=== PATIENT | male | born 1940 | race Caucasian/White ===

== ENCOUNTER 2025-09-03 08:36 | Emergency (ER) | payer MEDICARE, SELFPAY ==
[2025-09-03] VITALS (13 sets, daily range): BP systolic 88–162; BP diastolic 52–88; BMI 33.4
--- NOTE | 2025-09-03 09:11 | ED.GENMED ---
History of Present Illness
General
Chief Complaint: Heart Rate Problem
Source: patient
Exam Limitations: none
Time Seen by Provider: 09/03/25 08:59
Nursing documentation reviewed up to this point in time: agreed with
History of Present Illness
History of Present Illness:
85-year-old male with past medical history of hypertension, hyperlipidemia, CAD, atrial fibrillation on Eliquis who presents to the ER for evaluation of palpitations. Patient reports onset of symptoms yesterday afternoon and have been constant
since that time. He reports some mild associated shortness of breath. He denies any chest pain. Denies feeling dizzy. He denies any acute complaints otherwise. He does wear an Apple watch says that he told him he was in A-fib and that his heart
rates have occasionally shot up to the 130s. He takes atenolol as well as Eliquis and follows with Dr. [place] for his A-fib. He reports compliance with all medications.
Past History
Past History
ED Past Medical History: Arrthythmia, CAD, HTN and Hypercholesterolemia
ED Past Surgical History: Orthopedic
Social History
Tobacco: Non-smoker
Alcohol: Occasional
Personal:
Review of Systems
Review of Systems
All Other Systems: ROS reviewed and negative except as documented in HPI and ROS
Constitutional: Denies fever or chills
Respiratory: Reports trouble breathing
Cardiac: Reports palpitations; Denies chest pain
ABD/GI: Denies abdominal pain
Neurological: Denies dizzy or headache
Phy Exam
Physical Exam
Physical Exam:
General: Awake, alert; no acute distress
Head: Normocephalic, atraumatic
Eyes: Conjunctiva normal
Throat: Airway intact, handling secretions
Neck: Trachea midline, no JVD
Lungs: Clear to auscultation bilaterally, no wheezing, rales, rhonchi
Heart: Tachycardia with irregularly irregular rhythm, no murmurs appreciated
Abd: Soft, non distended, nontender
Neuro: Grossly intact
Skin: Warm and dry
Extremities: No edema in extremities, equal pulses in all extremities
Scores
Heart Failure Risk
Heart Failure Risk Score: Not Applicable
Heart Score for Chest Pain Patients
STEMI patient?: Not applicable
Withdrawal Assessment of Alcohol
Withdrawal Assessment Completed?: Not applicable
Course
Orders/Labs/Results
Orders:
Orders
09/03/25 08:48
EKG [Electrocardiogram (*1)] Urgent
Reason for Study: Tachycardia
EKG- Treatment ONCE
09/03/25 09:14
Complete Blood Count/With Diff Urgent
Comprehensive Metabolic Panel Urgent
09/03/25 09:39
Propofol [Diprivan] 20 ml .ROUTE .STK-MED
09/03/25 09:50
EKG [Electrocardiogram (*1)] Urgent
Reason for Study: Atrial Fibrillation
Other Reason for Exam: post cardoversion
EKG- Treatment ONCE
Abnormal Lab Results
09/03/25
09:14
RBC 3.91 L 10^6/uL
(4.70-6.10)
Hgb 12.3 L g/dL
(13.0-18.0)
Hct 36.9 L %
(39.0-52.0)
MCV 94.4 H fL
(80.0-94.0)
MCH 31.5 H pg
(27.0-31.0)
MPV 11.4 H fL
(7.4-10.4)
Absolute Lymphs (auto) 0.8 L 10^3/uL
(1.2-3.4)
Lymphocytes % 14.9 L %
(20.5-51.1)
Monocytes % 10.3 H %
(1.7-9.3)
BUN 23 H mg/dl
(9-20)
Glucose 125 H mg/dl
(70-99)
09/03/25 09:14
09/03/25 09:14
Vital Signs
Initial and Last Documented VS:
Initial Vital Signs
Temp Pulse Resp BP Pulse Ox
36.6 C 137 18 162/86 98
09/03/25 08:55 09/03/25 08:55 09/03/25 08:55 09/03/25 08:55 09/03/25 08:55
Last Documented Vital Signs
Temp Pulse Resp BP Pulse Ox
36.9 C 64 18 103/61 97
09/03/25 09:47 09/03/25 09:51 09/03/25 09:51 09/03/25 09:51 09/03/25 09:51
Procedures
Cardioversion
Indication:: Afib
Performed by:: Joshua Marquez MD
Synchronized?: Yes
Energy Used: 200 joules
Number of attempts: 1
Successful?: Yes
ASA Risk Score: Class III
Any reaction or bad outcome to prior sedation/anesthesia?: No history of a reaction
Sedation level to be attained: moderate
Chart and allergies reviewed: Yes
Patient reassessed prior to sedation: Yes
Time out completed at (validating right patient & procedure): 09:47
History of difficult intubation: No
Airway free of obstruction: Yes
Patient has a gag reflex: Yes
Patient is able to open mouth: Yes
Patient has no dentures: Yes
Patient has no loose teeth: Yes
Medication administered by Provider during Moderate Sedation: IV Propofol (mg)
Total dose administered: 40
Time drug administered: 09:47
Start Time: 09:47
Stop Time: 09:57
MDM/Problems Addressed
Differential Diagnosis Includes:
A-fib/flutter, PVCs, SVT
MDM/Problems Addressed:
85-year-old male presents with palpitations, Apple Watch alarming that he is in A-fib. Hypertensive, tachycardic in triage to the 130s although during my assessment heart rate around 100. Physical exam as above. EKG shows atrial flutter. Check
basic labs. Patient is on Eliquis and compliant and is symptomatic and so I discussed with him and electrocardioversion here and he is agreeable. Discussed with cardiology, they agree with this plan and will follow-up with him in the office. Will
plan to proceed with cardioversion as above.
Patient successfully cardioverted as documented procedure note. EKG confirms sinus rhythm. Patient tolerated procedure well. Will continue to monitor after sedation�patient remains awake and asymptomatic can be discharged after observation
period. Cardiology provided follow-up appointment next month in the office.
Chronic conditions affecting care:
Atrial fibrillation
*Pulse Oximetry
SaO2: 98
Oxygen Mode of Delivery: Room air
Patient hypoxic: no (98%)
*EKG
Interpreted by ED Provider?: Yes
Heart Rate: 97
Rate: normal
Rhythm: atrial flutter
Lennox: left axis deviation
Interval: normal interval
QRS Pattern: other (Left anterior fascicular block)
Ischemia: no ischemia
*Critical Care Note
Total Time (30-74mins, 75-104mins- exclusive of procedures): Not Applicable
Data Reviewed
Review of Other/Old Records Reveals: Labs and Records
Source: patient
Patient Management
Discussion with other providers: [employer] (Discussed with cardiology)
ED Attending Note
-
Portions of this chart may have been created with voice recognition software.� Occasional wrong word or��sound alike� substitutions may have occurred due to the inherent limitations of voice recognition software.
Discharge Plan
Departure
Patient with high blood pressure during this ER visit?: Yes
Discharge Problem:
Atrial fibrillation status post cardioversion
Instructions: Atrial Fibrillation (DC), MODERATE SEDATION ADULT
Prescriptions:
No Action
ascorbic acid (vitamin C) [Vitamin C] 1,000 MG tablet
1,000 mg PO DAILY
atorvastatin 10 MG tablet
10 mg PO QPM
atenolol 25 MG tablet
25 mg PO DAILY
omeprazole 20 MG capsule,delayed release(DR/EC)
20 mg PO DAILY
calcium carbonate-vitamin D3 1 EACH tablet
600 mg PO DAILY
Centrum Silver Men 1 EACH tablet
1 ea PO DAILY Qty: 0 0RF
Rx Instructions:
resume in 7 days
Eliquis 5 mg tablet
5 mg PO BID Qty: 1 0RF
Rx Instructions:
RESUME 5 MG TWICE DAILY DOSING ON 02/26 AM
tramadol 50 mg tablet
50 mg PO DAILY PRN (Reason: moderate pain)
Patient Comments:
03/10/2023: last filled 03/09/23, 12 tabs for 12 days from [facility]
tamsulosin 0.4 MG capsule
0.4 mg PO DAILY@1200
Rx Instructions:
Increase to twice daily for 1 week post-surgery due to urinary retention.
HOLD if systolic blood pressure <100.
acetaminophen 500 mg capsule
1,000 mg PO Q6H PRN (Reason: mild pain)
Rx Instructions:
DO NOT exceed >4000 mg daily.
cefdinir 300 mg capsule
300 mg PO BID Qty: 8 0RF
Referrals:
Heike Carbone CRNP [[employer] Professional Person[employer], Cardiology] - 09/30/25 10:40 am
Activity Restrictions/Additional Instructions:
Thank you for visiting the Emergency Department at [facility].
1. Please schedule a follow up appointment as directed. Call first thing tomorrow morning to make an appointment.
2. If indicated, please take your medications as instructed and indicated on discharge paperwork.
3. If any of your symptoms do not improve, or persist, or become more severe within 6-12 hours, please return to the emergency department for further care.
4. Please return to the emergency department if you develop a headache, neck pain/stiffness, fever greater than 100.4F, chest pain, shortness of breath, persistent nausea, vomiting, slurred speech, difficulty walking, numbness/tingling, weakness,
signs of infection or any other symptoms that are worrisome to you.
Please call [phone] if you have any questions.
Interventions
Interventions:
*Risk Screen - Suicide Last Done: 09/03/25 08:55
*General Assessment Last Done: 09/03/25 08:55
*ED COVID-19 Vaccine History Last Done: 09/03/25 08:55
*ED Influenza Vaccine History Last Done: 09/03/25 08:55
ED- Cardiac Assessment Last Done: 09/03/25 09:48
ED- Pulmonary Assessment Last Done: 09/03/25 09:53
Discharge Date and Time
Print Language: MALDIVIAN
[2025-09-03 09:28] LABS: Hematocrit 36.9 % (39.0-52.0); Hemoglobin 12.3 g/dL (13.0-18.0); Mean Corp Hgb Conc. 33.3 g/dL (33.0-37.0); Mean Corpuscular Volume 94.4 fL (80.0-94.0); Nucleated Red Blood Cells % 0 % (-); Platelet Count 158 10^3/uL (130-400); Red Cell Dist. Width 14.3 % (11.5-14.5)
[2025-09-03 09:55] LABS: ALT (SGPT) 24 U/L (0-50); AST (SGOT) 24 U/L (17-59); Albumin 4.1 g/dl (3.5-5.0); Alkaline Phosphatase 106 U/L (38-126); Blood Urea Nitrogen 23 mg/dl (9-20); Calcium 9.0 mg/dl (8.4-10.2); Carbon Dioxide 28 mmol/L (22-30); Chloride 104 mmol/L (98-107); Estimated Creatinine Clearance 75 ml/min; Glucose 125 mg/dl (70-99); Potassium 4.2 mmol/L (3.5-5.1); Sodium 140 mmol/L (135-145); Total Protein 7.3 g/dl (6.3-8.2); eGFR > 60.00
== END 2025-09-03 10:54 | disposition home or self-care (01) ==
LOC: EMR 08:36
PROVIDERS: EMERGENCY PHYSICIAN Emergency Medicine; FAMILY PHYSICIAN Family Medicine
DX: I48.91 Unspecified atrial fibrillation (principal); I10 Essential (primary) hypertension; E78.00 Pure hypercholesterolemia, unspecified; I25.10 Atherosclerotic heart disease of native coronary artery without angina pectoris; Z79.01 Long term (current) use of anticoagulants
CPT/HCPCS: 92960; 99152; 99285; 80053; 85025; 93005

== ENCOUNTER → 2025-10-16 11:17 | Outpatient (REF) | payer MEDICARE, SELFPAY | LOC: HWRCS 11:17 | PROVIDERS: ATTENDING PHYSICIAN Nurse Practitioner Gerontology; FAMILY PHYSICIAN Family Medicine | DX: I25.10 Atherosclerotic heart disease of native coronary artery without angina pectoris (principal); I48.0 Paroxysmal atrial fibrillation; R01.1 Cardiac murmur, unspecified | CPT/HCPCS: 93306 ==

== ENCOUNTER → 2025-10-30 07:16 | Outpatient (REF) | payer MEDICARE, SELFPAY | LOC: RCS 07:16 | PROVIDERS: ATTENDING PHYSICIAN Nurse Practitioner Gerontology; FAMILY PHYSICIAN Family Medicine | DX: I31.39 Other pericardial effusion (noninflammatory) (principal) | CPT/HCPCS: 93307; Q9957 ==